=== PATIENT | female | born 1995 | race African-American/Black ===

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

== ENCOUNTER 2019-03-26 11:06 | Emergency (ER) | payer MEDICAID, MEDICARE, OTHER ==
[~2019-03-26] VITALS: Ht 152.4 cm; Wt 92.1 kg
--- NOTE | 2019-03-26 11:31 | NUR ---
ED Nurse Note:pt. c/o left foot pain and swelling after she fell yesterday
[2019-03-26] MEDS ORDERED: Acetaminophen 500mg (ES) tab PO ONE (11:45)
--- NOTE | 2019-03-26 12:39 | Diagnostic Imaging Report ---
Indication: left ankle pain Comparison: None Findings: 3 views of the left ankle obtained. Soft tissues are unremarkable. No acute fracture, malalignment, periostitis, or osteochondral defects are identified. Impression: No acute findings
[2019-03-26] MEDS ORDERED: TYLENOL EXTRA500 MG ORAL (12:52)
--- NOTE | 2019-03-26 12:53 | Diagnostic Imaging Report ---
Indication: Foot pain Comparison: None Findings: 3 views of the left foot were obtained. No acute fractures, malalignment, erosions or periostitis are identified. Soft tissues are unremarkable. Impression: No acute findings
--- NOTE | 2019-03-26 13:40 | NUR ---
ER DISCHARGE NOTE: Patient is cleared to be discharged per ERMD, pt is aox4, on room air, with stable vital signs. pt was given dc and prescription instructions, pt was able to verbalize understanding, pt is able to ambulating with cratchies. pt took all belongings.
[2019-03-26 14:22] VITALS: BP 119/71
--- NOTE | 2019-03-27 07:48 | Emergency Room Report ---
History of Present Illness General Chief Complaint: Lower Extremity Injury Source: Patient Present Illness HPI 23-year-old female presents ED for evaluation. Complaining of left ankle and foot pain. States that last night she tripped and fell, rolling her ankle. Presenting with left foot and ankle pain and swelling. Throbbing, 8 out of 10, nonradiating. Difficult bearing weight. Denies any other injuries. States that she is about 7 weeks based on LMP. Denies any abdominal pain or cramping or spotting. Is scheduled to start care. No other aggravating relieving factors. Denies any other associated symptoms Allergies: Coded Allergies: No Known Allergies (Unverified , 10/23/15) Patient History Past Medical History: none Past Surgical History: none Pertinent Family History: none Social History: Denies: smoking, alcohol use, drug use Last Menstrual Period: 7 weeks Now: Yes Immunizations: UTD Reviewed Nursing Documentation: PMH: Agreed; PSxH: Agreed Nursing Documentation-PMH Past Medical History: No Stated History Review of Systems All Other Systems: negative except mentioned in HPI Physical Exam Vital Signs Date Time Temp Pulse Resp B/P (MAP) Pulse Ox O2 Delivery O2 Flow Rate FiO2 03/26/19 11:12 98.6 92 18 119/71 (87) 99 Room Air Sp02 EP Interpretation: reviewed, normal General Appearance: no apparent distress, alert, GCS 15, non-toxic Head: normocephalic Eyes: bilateral eye normal inspection, bilateral eye PERRL ENT: normal ENT inspection Neck: normal inspection Respiratory: normal inspection Cardiovascular #1: normal inspection Gastrointestinal: normal bowel sounds, non tender, soft, non-distended, no guarding, no rebound Rectal: deferred Genitourinary: no CVA tenderness Musculoskeletal: back normal, gait/station normal, non-tender, decreased range of motion, tender - dorsum L foot. L ankle Neurologic: alert, oriented x3, responsive, motor strength/tone normal, sensory intact, speech normal Psychiatric: normal inspection Skin: no rash Lymphatic: normal inspection Procedures Splinting Splinting : Pre-Made Type: FRANK wrap - crutches Pre-Proc Neuro Vasc Exam: normal Post-Proc Neuro Vasc Exam: normal Patient Tolerated: Well Complications: None Medical Decision Making Diagnostic Impression: Primary Impression: Ankle sprain Qualified Codes: S93.402A - Sprain of unspecified ligament of left ankle, initial encounter ER Course Hospital Course 23-year-old F presents to ED complaining of L foot/ankle pain s/p trip and fall Differential diagnoses include: Fracture, dislocation, sprain, contusion Clinical course Patient placed on stretcher. After initial history and physical, I ordered pain medications and Xrays of L foot/ankle Precautions taken to shield the patient as she is . She agreed to x- rays Xrays prelim read shows no acute fracture/dislocation. placed in frank wrap, given crutches Discussed findings with patient. Safe for discharge close outpatient follow- up. I will provide Ortho referrals. States that she will start her care this week Diagnosis - ankle sprain Stable and discharged to home with prescription for tylenol. apply ice, keep elevated. weight bear as tolerated. Followup with PMD/ortho. Return to ED if symptoms recur or worsen Other X-Ray Diagnostic Results Other X-Ray Diagnostic Results #1: X-Ray ordered: L ankle # of Views/Limited Vs Complete: 3 View Indication: Pain EP Interpretation: Yes Interpretation: no dislocation, no soft tissue swelling, no fractures Impression: No acute disease Electronically Signed by: Electronically signed by Hair Diane MD Other X-Ray Diagnostic Results #2: X-Ray ordered: L foot # of Views/Limited Vs Complete: 3 View Indication: Pain EP Interpretation: Yes Interpretation: no dislocation, no soft tissue swelling, no fractures Impression: No acute disease Electronically Signed by: Electronically signed by Hair Diane MD Last Vital Signs Date Time Temp Pulse Resp B/P (MAP) Pulse Ox O2 Delivery O2 Flow Rate FiO2 03/26/19 14:22 98.6 18 119/71 99 Room Air 03/26/19 11:12 92 Status: improved Disposition: HOME, SELF-CARE Condition: Stable Scripts Acetaminophen* (TYLENOL EXTRA STRENGTH*) 500 Mg Tablet 500 MG ORAL Q8H PRN for Prn Headache/Temp > 101, #30 TAB 0 Refills Prov: Hair Diane MD 03/26/19 Referrals: NON PHYSICIAN (PCP) [facility] Open 24 hour /7 days a week by Appointment Only [address] [facility] [address] [facility] [address] Patient Instructions: Ankle Sprain Hair Diane MD Mar 27, 2019 07:48
== END 2019-03-26 13:40 | disposition home or self-care (01) ==
LOC: EMR 11:44
DX: O26.891 Other specified pregnancy related conditions, first trimester (principal); S93.402A Sprain of unspecified ligament of left ankle, initial encounter; W18.30XA Fall on same level, unspecified, initial encounter; Y92.9 Unspecified place or not applicable; Z3A.01 Less than 8 weeks gestation of pregnancy
CPT/HCPCS: 99284

== ENCOUNTER 2019-05-28 16:31 | Emergency (ER) | payer MEDICARE, OTHER ==
[~2019-05-28] VITALS: Ht 152.4 cm; Wt 90.7 kg
[~2019-05-28 16:31] MED LIST changes: +TYLENOL EXTRA500 MG ORAL
[2019-05-28 16:37] VITALS: BP 113/70
[2019-05-28] MEDS ORDERED: CALCIUM500 M3 PO (16:43)
[2019-05-28] MEDS ORDERED: IRON159 MG PO (16:43)
--- NOTE | 2019-05-28 16:46 | NUR ---
ED Nurse Note: Pt. AAOx4. ambulatory. pt. walked in to er. per pt. she is 15 weeks . pt. stated she has yeast infection with whitish colored discharged. Pt. stated her aunt told her to put yogurt on her vagina to help with yeast but now pt. is concerned because there's greenish colored discharge
[2019-05-28] MEDS ORDERED: Azithromycin 250mg tab ORAL ONE (17:15)
[2019-05-28 17:17] LABS: APPEARANCE,URINE CLOUDY; BILIRUBIN, URINE NEGATIVE (NEGATIVE); COLOR,URINE PALE YELLOW; GLUCOSE, URINE (UA) NEGATIVE (NEGATIVE); KETONES,URINE 3+ (NEGATIVE); LEUKOCYTE ESTERASE ,URINE 3+ (NEGATIVE); NITRITE,URINE NEGATIVE (NEGATIVE); PH,URINE 6.5 (4.5-8.0); PROTEIN,URINE NEGATIVE (NEGATIVE); UROBILINOGEN,URINE NORMAL MG/DL (0.0-1.0)
[2019-05-28 17:45] LABS: BASOPHILS % (AUTO) 1.3 % (0.0-2.0); EOSINOPHILS % (AUTO) 0.7 % (0.0-3.0); HEMATOCRIT 36.8 % (37.0-47.0); LYMPHOCYTES % (AUTO) 24.4 % (20.0-45.0); MEAN CORPUSCULAR VOLUME 76 FL (80-99); MONOCYTES % (AUTO) 6.6 % (1.0-10.0); NEUTROPHILS % (AUTO) 67.1 % (45.0-75.0); PLATELET COUNT 272 K/UL (150-450); RED BLOOD COUNT 4.84 M/UL (4.20-5.40); RED CELL DISTRIBUTION WIDTH 13.6 % (11.6-14.8); WHITE BLOOD COUNT 7.6 K/UL (4.8-10.8)
[2019-05-28 17:56] LABS: ANION GAP 9 mmol/L (5-15); BLOOD UREA NITROGEN 6 mg/dL (7-18); CALCIUM 8.7 MG/DL (8.5-10.1); CARBON DIOXIDE 26 MMOL/L (21-32); CHLORIDE 103 MMOL/L (98-107); CREATININE 0.6 MG/DL (0.55-1.30); POTASSIUM 3.1 MMOL/L (3.5-5.1); SODIUM 138 MMOL/L (136-145)
[2019-05-28 18:00] LABS: ALANINE AMINOTRANSFERASE 20 U/L (12-78); ALBUMIN 3.3 G/DL (3.4-5.0); ALBUMIN/GLOBULIN RATIO 0.8 (1.0-2.7); ALKALINE PHOSPHATASE 65 U/L (46-116); ASPARTATE AMINO TRANSFERASE 16 U/L (15-37); BILIRUBIN,TOTAL 0.2 MG/DL (0.2-1.0)
--- NOTE | 2019-05-28 18:30 | NUR ---
ED Nurse Note: PT. WENT DOWN TO US
--- NOTE | 2019-05-28 19:48 | Emergency Room Report ---
History of Present Illness General Chief Complaint: Vaginal Source: Patient Present Illness HPI 23-year-old female with no significant past medical history who is G1, P0 at 15 weeks here complaining of 2 days of white clumpy vaginal discharge and now turning green. Complains of pruritus. Denies dysuria urinary frequency. Reports that she has been sexually active with a new partner. Reports that she apply yogurt the vaginal area and started feeling worse. Denies diffuse abdominal pain, fever and chills, syncope, chest pain, shortness of breath, palpitation, vaginal spotting or bleeding. Complains of minimal left lower quadrant abdominal pain. Reports that her last DIGGING MACHINE OPERATOR visit was 3 weeks ago and within normal limits. Patient is compliant with taking vitamins. Sitting comfortably with stable vital signs. Allergies: Coded Allergies: No Known Allergies (Unverified , 10/23/15) Patient History Past Medical History: see triage record Past Surgical History: unable to obtain Pertinent Family History: none Now: Yes - 15 weeks Immunizations: UTD Reviewed Nursing Documentation: PMH: Agreed; PSxH: Agreed Nursing Documentation-PMH Past Medical History: No History, Except For Review of Systems All Other Systems: negative except mentioned in HPI Physical Exam Vital Signs Date Time Temp Pulse Resp B/P (MAP) Pulse Ox O2 Delivery O2 Flow Rate FiO2 05/28/19 16:37 98.2 94 19 113/70 (84) 99 Room Air Sp02 EP Interpretation: reviewed, normal General Appearance: no apparent distress, alert, GCS 15, non-toxic Head: normocephalic, atraumatic Eyes: bilateral eye normal inspection, bilateral eye PERRL ENT: hearing grossly normal, normal pharynx, no angioedema, normal voice Neck: full range of motion, supple/symm/no masses Respiratory: chest non-tender, lungs clear, normal breath sounds, no rhonchi, speaking full sentences Cardiovascular #1: regular rate, rhythm, no edema, no JVD, no murmur Gastrointestinal: normal bowel sounds, non tender, soft, no guarding, no hernia , no pulsatile mass, no rebound, distended - gravid Rectal: deferred Genitourinary: normal inspection, no CVA tenderness Musculoskeletal: back normal, decreased range of motion, normal range of motion , digits/nails normal, calf tenderness Neurologic: alert, motor strength/tone normal, oriented x3, sensory intact, responsive, speech normal Skin: no rash Lymphatic: no adenopathy Medical Decision Making PA Attestation Diagnosis and treatment plans were reviewed and discussed with my supervising physician Dr. Mckee Diagnostic Impression: Primary Impression: Vaginitis during Additional Impression: Abdominal pain during intrauterine ER Course 23-year-old female with no significant past medical history who is G1, P0 at 15 weeks here complaining of 2 days of white clumpy vaginal discharge and now turning green. Complains of pruritus. Denies dysuria urinary frequency. Reports that she has been sexually active with a new partner. Reports that she apply yogurt the vaginal area and started feeling worse. Denies diffuse abdominal pain, fever and chills, syncope, chest pain, shortness of breath, palpitation, vaginal spotting or bleeding. Complains of minimal left lower quadrant abdominal pain. Reports that her last DIGGING MACHINE OPERATOR visit was 3 weeks ago and within normal limits. Patient is compliant with taking vitamins. Sitting comfortably with stable vital signs. Ddx considered but are not limited to: vaginitis, yeast infection, BV, chlamydia , Gonorrhea, syphilis, HIV, herpes 1 or 2, ectopic , PID, threatened , abdominal pain during Vital signs: are WNL, pt. is afebrile H&PE are most consistent with : Vaginitis during , abdominal pain during ORDERS: UA, urince cx, wet mount, GC and chlamydia, OB ultrasound, beta-hCG, CBC , CMP, UA, type and screen, ED INTERVENTIONS: Rocephin, azithromycin, patient agreed to be prophylactically treated for chlamydia and gonorrhea. DISCHARGE: At this time pt. is stable for d/c to home. Will provide printed patient care instructions, and any necessary prescriptions. Care plan and follow up instructions have been discussed with the patient prior to discharge. Patient to follow-up with DIGGING MACHINE OPERATOR in 24 to 48 hours, if worsening symptoms return to the emergency room. CT/MRI/US Diagnostic Results CT/MRI/US Diagnostic Results : Imaging Test Ordered: OB US Impression WNL Last Vital Signs Date Time Temp Pulse Resp B/P (MAP) Pulse Ox O2 Delivery O2 Flow Rate FiO2 05/28/19 16:37 98.2 94 19 113/70 99 Room Air Disposition: HOME, SELF-CARE Condition: Stable Referrals: [facility],REFERRING (PCP) Patient Instructions: Abdominal Pain During , [id number], Vaginitis , [id number] Additional Instructions: Follow-up with your DIGGING MACHINE OPERATOR in 24 to 48 hours, avoid strenuous physical activity , you are already treated for possible chlamydia and gonorrhea. Efren Soto May 28, 2019 19:48
[2019-05-28 20:00] VITALS: BP 118/65
--- NOTE | 2019-05-28 20:01 | Diagnostic Imaging Report ---
EXAM: US First Trimester , Transabdominal and Transvaginal CLINICAL HISTORY: PAIN TECHNIQUE: Real-time transabdominal and transvaginal obstetrical ultrasound of the maternal pelvis and a first trimester with image documentation. Transvaginal imaging was used for better evaluation of the fetus and adnexa. COMPARISON: No relevant prior studies available. FINDINGS: Gestation: Single living intrauterine with an estimated gestational age of 15 weeks and 3 days. heart rate 150 bpm. Fetuses transverse in position. The cervix is closed measuring 3.4 cm. Free fluid: Trace free fluid within the cul-de-sac. IMPRESSION: Single living intrauterine with an estimated gestational age of 15 weeks and 3 days. No acute abnormality.
--- NOTE | 2019-05-28 20:09 | NUR ---
ER DISCHARGE NOTE: Patient is cleared to be discharged per ERMD, pt is aox4, on room air, with stable vital signs. pt was given dc instructions, pt was able to verbalize understanding, pt id band and iv site removed without complications. pt is able to ambulate with steady gait. pt took all belongings.
== END 2019-05-28 20:00 | disposition home or self-care (01) ==
LOC: EMR 16:47
DX: O23.592 Infection of other part of genital tract in pregnancy, second trimester (principal); O26.892 Other specified pregnancy related conditions, second trimester; R10.32 Left lower quadrant pain; Z3A.15 15 weeks gestation of pregnancy
CPT/HCPCS: 76805; 80053; 81003; 84702; 85025; 87210; 87491; 87590; 96372; 99284; J0696

== ENCOUNTER 2019-08-24 16:15 | Emergency (ER) | payer OTHER ==
[~2019-08-24] VITALS: Ht 152.4 cm; Wt 91.2 kg
[~2019-08-24 16:15] MED LIST changes: +CALCIUM500 M3 PO; +IRON159 MG PO
--- NOTE | 2019-08-24 16:30 | NUR ---
ED Nurse Note: Pt ambulated to ED d/t vaginal spotting x 2 days. Pt is 28 weeks , amniotic fluid still intact; one. Placed on bed and gown; family members at bedside.
--- NOTE | 2019-08-24 17:00 | NUR ---
ED Nurse Note: Pt able to urinate, specimen collected; sent to labs.
--- NOTE | 2019-08-24 17:20 | NUR ---
ED Nurse Note: Pt went on US accompanied by tech, on stable condition.
[2019-08-24 17:24] LABS: APPEARANCE,URINE SLIGHTLY CLOUDY; BILIRUBIN, URINE NEGATIVE (NEGATIVE); COLOR,URINE PALE YELLOW; GLUCOSE, URINE (UA) NEGATIVE (NEGATIVE); KETONES,URINE NEGATIVE (NEGATIVE); LEUKOCYTE ESTERASE ,URINE 3+ (NEGATIVE); NITRITE,URINE NEGATIVE (NEGATIVE); PH,URINE 7 (4.5-8.0); PROTEIN,URINE NEGATIVE (NEGATIVE); UROBILINOGEN,URINE NORMAL MG/DL (0.0-1.0)
--- NOTE | 2019-08-24 17:25 | Emergency Room Report ---
History of Present Illness General Chief Complaint: Complications Source: Patient Present Illness HPI Patient presents with complaints of suprapubic cramping and epigastric discomfort Patient also saw vaginal spotting earlier today she reports that she saw her OB doctor last week Was doing well after starting to work she had these symptoms ongoing for the past 2 days now and presents to the ER Denies any chest pain or shortness of breath denies any vomiting or diarrhea Denies any recent trauma Allergies: Coded Allergies: No Known Allergies (Unverified , 10/23/15) Patient History Past Medical History: see triage record Last Menstrual Period: jan Now: Yes - 7 months : 1 Reviewed Nursing Documentation: PMH: Agreed; PSxH: Agreed Nursing Documentation-PMH Past Medical History: No Stated History Review of Systems All Other Systems: negative except mentioned in HPI Physical Exam Vital Signs Date Time Temp Pulse Resp B/P (MAP) Pulse Ox O2 Delivery O2 Flow Rate FiO2 08/24/19 16:23 98.4 93 20 116/62 (80) 98 Room Air Sp02 EP Interpretation: reviewed, normal General Appearance: well appearing, no apparent distress Head: normocephalic, atraumatic Eyes: bilateral eye PERRL, bilateral eye EOMI ENT: hearing grossly normal, EOM grossly intact Neck: supple Respiratory: chest non-tender, lungs clear Cardiovascular #1: regular rate, rhythm Gastrointestinal: other - abdomen Genitourinary: no CVA tenderness Musculoskeletal: normal inspection, back normal Neurologic: alert Psychiatric: normal inspection Skin: no rash Lymphatic: no adenopathy Medical Decision Making Diagnostic Impression: Primary Impression: Abdominal pain ER Course Multiple differentials and consideration patient has a palpable abdomen is at approximately 28 weeks therefore further testing was not initiated Patient did have ultrasound obtained Ultrasound is within normal limits Patient does not have any active cramping at this time does not appear to be in labor urine sample showed some evidence of possible UTI she was provided with initial antibiotic here and requires close outpatient follow-up Labs Test 08/24/19 17:11 Urine Color Pale yellow Urine Appearance Slightly cloudy Urine pH 7 (4.5-8.0) Urine Specific Bland 1.010 (1.005-1.035) Urine Protein Negative (NEGATIVE) Urine Glucose (UA) Negative (NEGATIVE) Urine Ketones Negative (NEGATIVE) Urine Blood 1+ (NEGATIVE) Urine Nitrite Negative (NEGATIVE) Urine Bilirubin Negative (NEGATIVE) Urine Urobilinogen Normal MG/DL (0.0-1.0) Urine Leukocyte Esterase 3+ (NEGATIVE) Urine RBC 2-4 /HPF (0 - 2) Urine WBC 2-4 /HPF (0 - 2) Urine Squamous Epithelial Cells Moderate /LPF (NONE/OCC) Urine Amorphous Sediment Few /LPF (NONE) Urine Bacteria Few /HPF (NONE) CT/MRI/US Diagnostic Results CT/MRI/US Diagnostic Results : Impression Pelvic ultrasoundUS OB 1st TRIMESTER: Single live IUP with an estimated gestational age of 28 weeks and 1 day. Normal heart tones measured 159 bpm. Cervix long and closed measuring up to 4.2 cm. Posterior placenta without evidence of previa. No abnormalities identified. Last Vital Signs Date Time Temp Pulse Resp B/P (MAP) Pulse Ox O2 Delivery O2 Flow Rate FiO2 08/24/19 16:23 98.4 93 20 116/62 (80) 98 Room Air Status: improved Disposition: HOME, SELF-CARE Condition: Improved Scripts Nitrofurantoin Monohyd/M-Cryst* (MACROBID 100 MG*) 100 Mg Capsule 100 MG ORAL EVERY 12 HOURS for 5 Days, CAP Prov: Brittany Coffman DO 08/24/19 Additional Instructions: Patient is provided with the discharge instructions notified to follow up with primary doctor in the next 2-3 days otherwise return to the er with any worsening symptoms. Please note that this report is being documented using [employer] technology. This can lead to erroneous entry secondary to incorrect interpretation by the dictating instrument. Brittany Coffman DO Aug 24, 2019 17:25
--- NOTE | 2019-08-24 18:18 | Diagnostic Imaging Report ---
Indication: 23-year-old pelvic pain and vaginal bleeding Technique: Grayscale and duplex Doppler imaging of the pelvis performed utilizing a transabdominal scan and endovaginal scan. Comparison: None Findings: Single viable intrauterine demonstrated. Gestational age estimated at 28 weeks one day based on sonographic criteria. Biparietal diameter 70.3 mm, 28 weeks 2 days. Head circumference 256.4 mm, 27 weeks 6 days. Abdominal circumference 241.6 mm, 28 weeks 3 days. Femur length 52.5 mm, 28 weeks. The placenta is posterior location. There is no placenta previa. presentation is cephalic. The cervix is best seen on endovaginal scan and has a length of approximately 4.2 cm. The cervix is closed. MARIELA is normal estimated at 13.5 cm. heart tones are demonstrated indicating viability. anatomy is not assessed adequately on this examination. IMPRESSION: Single viable intrauterine 28 weeks one day gestational age. Close cervix. Normal MARIELA. Note: A negative ultrasound evaluation does not insure well-being or positive outcome for the . monitoring including a nonstress test may be needed and clinical evaluation by [facility]IDER is highly recommended. [facility] has communicated the preliminary results to the Emergency Department. Their findings are largely concordant with this report.
[2019-08-24] MEDS ORDERED: NITROFURANTOIN100 M2 ORAL (18:49)
[2019-08-24 19:13] VITALS: BP 118/64
--- NOTE | 2019-08-24 19:13 | NUR ---
ER DISCHARGE NOTE: Patient is cleared to be discharged per ERMD, pt is aox4, on room air, with stable vital signs. pt was given dc and prescription instructions, pt was able to verbalize understanding, pt id band removed. pt is able to ambulate with steady gait. pt took all belongings.
== END 2019-08-24 19:13 | disposition home or self-care (01) ==
LOC: EMR 17:04
DX: O26.893 Other specified pregnancy related conditions, third trimester (principal); R10.13 Epigastric pain; Z3A.28 28 weeks gestation of pregnancy
CPT/HCPCS: 76805; 76817; 76830; 76856; 81003; 99284

== ENCOUNTER 2020-04-23 08:11 | Emergency (ER) | payer OTHER ==
[~2020-04-23] VITALS: Ht 157.5 cm; Wt 81.6 kg
[~2020-04-23 08:11] MED LIST changes: +NITROFURANTOIN100 M2 ORAL
[2020-04-23 08:12] VITALS: BP 140/80
--- NOTE | 2020-04-23 08:21 | Emergency Room Report ---
History of Present Illness General Chief Complaint: Nausea, Vomiting, and Diarrhea Source: Patient Present Illness HPI Disclaimer: Please note that this report is being documented using [employer] technology. This can lead to erroneous entry secondary to incorrect interpretation by the dictating instrument. HPI: 24-year-old female presents for evaluation of abdominal pain and vomiting. Symptoms began early this morning approximately 3 AM. Noticed periumbilical right lower quadrant pain and persistent nonbloody nonbilious emesis. Reported some loose stools as well. Pain exacerbated by bending and twisting motion as well as ambulating. No relieving factors. Did not take any medication prior to arrival. Prior history of section and hernia repair. Denies vaginal bleeding, vaginal discharge, dysuria, hematuria, fever, chills, chest pain, shortness of breath or cough. PMH: Reviewed PSH: Hernia repair, section Allergies: Reviewed Social Hx: Reviewed Allergies: Coded Allergies: No Known Allergies (Unverified , 10/23/15) COVID-19 Screening Contact w/high risk pt: No Experienced COVID-19 symptoms?: No COVID-19 Testing performed APPAREL MANAGER: No Patient History Now: No Nursing Documentation-PMH Past Medical History: No Stated History Review of Systems All Other Systems: negative except mentioned in HPI Physical Exam Vital Signs Date Time Temp Pulse Resp B/P (MAP) Pulse Ox O2 Delivery O2 Flow Rate FiO2 04/23/20 08:08 97.3 97 20 140/80 (100) 100 Room Air General: Awake and alert, appears uncomfortable HEENT: NC/AT. EOMI. Cardiovascular: RRR. S1 and S2 normal. No murmur appreciated Resp: Normal work of breathing. No cough, wheezing or crackles appreciated Abdomen: Abdomen is soft, nondistended. Tender palpation of the right lower quadrant with positive rebound, positive percussion, positive Rovsing's. Skin: Intact. No abrasions, laceration or rash over the exposed skin MSK: Normal tone and bulk. Moving all extremities. No obvious deformity. Neuro: Awake and alert. Mentating appropriately. Medical Decision Making Diagnostic Impression: Primary Impression: Kidney stone ER Course 24-year-old female presents for evaluation abdominal pain and vomiting beginning this morning. Differential includes is not limited to gastritis, gastroenteritis, pancreatitis, cholecystitis, ovarian cyst, ovarian torsion, nephrolithiasis, ectopic , appendicitis, bowel obstruction to name a few. Labs returned within normal limits. Urinalysis shows red cells only. Lipase negative. CT scan shows 2 mm distal stone at the UVJ likely explaining her symptoms. Patient received IV fluids, pain medication and is feeling much better. No further emesis. No evidence of infection on urinalysis. Will discharge with analgesics, antiemetics, Flomax. Patient can follow-up with her PMD and obtain referral for urologist on outpatient basis. Discussed reasons to return to the ER. She understands and agrees with this treatment plan. Laboratory Tests Test 04/23/20 08:18 04/23/20 09:35 White Blood Count 6.3 K/UL (4.8-10.8) Red Blood Count 5.28 M/UL (4.20-5.40) Hemoglobin 13.4 G/DL (12.0-16.0) Hematocrit 42.0 % (37.0-47.0) Mean Corpuscular Volume 82 FL (80-99) Mean Corpuscular Hemoglobin 25.4 PG (27.0-31.0) L Mean Corpuscular Hemoglobin Concent 31.2 G/DL (32.0-36.0) L Red Cell Distribution Width 12.0 % (11.6-14.8) Platelet Count 275 K/UL (150-450) Mean Platelet Volume 6.9 FL (6.5-10.1) Neutrophils (%) (Auto) 46.9 % (45.0-75.0) Lymphocytes (%) (Auto) 43.9 % (20.0-45.0) Monocytes (%) (Auto) 6.8 % (1.0-10.0) Eosinophils (%) (Auto) 0.8 % (0.0-3.0) Basophils (%) (Auto) 1.7 % (0.0-2.0) Prothrombin Time 11.2 SEC (9.30-11.50) Prothrombin Time INR 1.0 (0.9-1.1) Activated Partial Thromboplast Time 29 SEC (23-33) Sodium Level 135 MMOL/L (136-145) L Potassium Level 3.5 MMOL/L (3.5-5.1) Chloride Level 103 MMOL/L (98-107) Carbon Dioxide Level 26 MMOL/L (21-32) Anion Gap 6 mmol/L (5-15) Blood Urea Nitrogen 15 mg/dL (7-18) Creatinine 0.9 MG/DL (0.55-1.30) Estimated Glomerular Filtration Rate > 60 mL/min (>60) Glucose Level 111 MG/DL (74-106) H Calcium Level 8.8 MG/DL (8.5-10.1) Total Bilirubin 0.3 MG/DL (0.2-1.0) Aspartate Amino Transferase (AST) 15 U/L (15-37) Alanine Aminotransferase (ALT) 20 U/L (12-78) Alkaline Phosphatase 79 U/L (46-116) Total Protein 8.0 G/DL (6.4-8.2) Albumin 3.8 G/DL (3.4-5.0) Globulin 4.2 g/dL Albumin/Globulin Ratio 0.9 (1.0-2.7) L Lipase 100 U/L (73-393) Urine Color Pale yellow Urine Appearance Clear Urine pH 7 (4.5-8.0) Urine Specific [place] 1.010 (1.005-1.035) Urine Protein Negative (NEGATIVE) Urine Glucose (UA) Negative (NEGATIVE) Urine Ketones Negative (NEGATIVE) Urine Blood 5+ (NEGATIVE) H Urine Nitrite Negative (NEGATIVE) Urine Bilirubin Negative (NEGATIVE) Urine Urobilinogen Normal MG/DL (0.0-1.0) Urine Leukocyte Esterase Negative (NEGATIVE) Urine RBC 10-15 /HPF (0 - 2) H Urine WBC 0-2 /HPF (0 - 2) Urine Squamous Epithelial Cells Few /LPF (NONE/OCC) Urine Bacteria Occasional /HPF (NONE) Urine HCG, Qualitative Negative (NEGATIVE) CT/MRI/US Diagnostic Results CT/MRI/US Diagnostic Results : Impression IMPRESSION: 1. 2 mm calcification near the right UVJ may represent a distal ureteral stone. Mild right hydroureteronephrosis. 2. Mild hypoattenuation in the right kidney is concerning for early pyelonephritis. Prominence of the urothelium in the right renal collecting sys tem is suggestive of ureteritis. 3. Mild prominence of the bladder wall is concerning for cystitis. Please correlate with urinalysis. 4. Punctate nonobstructing left renal stone. No hydronephrosis or ureteral stone on the left. 5. Collapsing cyst or corpus luteum in the right ovary. Radiologist: Charito Irwin M.D. Electronically Signed: 04/23/20 11:09 Study ready at 11:03 and initial results transmitted at 11:09 Last Vital Signs Date Time Temp Pulse Resp B/P (MAP) Pulse Ox O2 Delivery O2 Flow Rate FiO2 04/23/20 08:08 97.3 97 20 140/80 (100) 100 Room Air Disposition: HOME, SELF-CARE Condition: Stable Scripts Ondansetron Odt* (ZOFRAN ODT*) 4 Mg Tab.rapdis 4 MG BC EVERY 6 HOURS PRN for Nausea & Vomiting, #20 TAB 0 Refills Prov: Wojciech Falcon MD 04/23/20 Tamsulosin HCl (Flomax) 0.4 Mg Cap.er.24h 0.4 MG ORAL DAILY for BPH for 5 Days, #5 CAP Prov: Wojciech Falcon MD 04/23/20 Ibuprofen* (MOTRIN*) 600 Mg Tablet 600 MG ORAL Q6H PRN for For Pain, #30 TAB 0 Refills Prov: Wojciech aFlcon MD 04/23/20 Wojciech Falcon MD Apr 23, 2020 08:21
[2020-04-23] MEDS ORDERED: Morphine Sulfate 4mg/ml Inj (IV USE ONLY) IVP ONE ×2 (08:30→09:45)
[2020-04-23] MEDS ORDERED: Omnipaque-300 100ml vial INJ PRN (08:30)
[2020-04-23 09:02] LABS: BASOPHILS % (AUTO) 1.7 % (0.0-2.0); EOSINOPHILS % (AUTO) 0.8 % (0.0-3.0); HEMOGLOBIN 13.4 G/DL (12.0-16.0); LYMPHOCYTES % (AUTO) 43.9 % (20.0-45.0); MEAN CORPUSCULAR VOLUME 82 FL (80-99); MONOCYTES % (AUTO) 6.8 % (1.0-10.0); NEUTROPHILS % (AUTO) 46.9 % (45.0-75.0); PLATELET COUNT 275 K/UL (150-450); RED BLOOD COUNT 5.28 M/UL (4.20-5.40); WHITE BLOOD COUNT 6.3 K/UL (4.8-10.8)
[2020-04-23 09:13] LABS: ANION GAP 6 mmol/L (5-15); BLOOD UREA NITROGEN 15 mg/dL (7-18); CALCIUM 8.8 MG/DL (8.5-10.1); CARBON DIOXIDE 26 MMOL/L (21-32); CHLORIDE 103 MMOL/L (98-107); CREATININE 0.9 MG/DL (0.55-1.30); POTASSIUM 3.5 MMOL/L (3.5-5.1); SODIUM 135 MMOL/L (136-145)
[2020-04-23 09:17] LABS: ALANINE AMINOTRANSFERASE 20 U/L (12-78); ALBUMIN 3.8 G/DL (3.4-5.0); ALBUMIN/GLOBULIN RATIO 0.9 (1.0-2.7); ALKALINE PHOSPHATASE 79 U/L (46-116); ASPARTATE AMINO TRANSFERASE 15 U/L (15-37); BILIRUBIN,TOTAL 0.3 MG/DL (0.2-1.0)
[2020-04-23 10:24] VITALS: BP 131/72
[2020-04-23 10:24] LABS: APPEARANCE,URINE CLEAR; BILIRUBIN, URINE NEGATIVE (NEGATIVE); COLOR,URINE PALE YELLOW; GLUCOSE, URINE (UA) NEGATIVE (NEGATIVE); KETONES,URINE NEGATIVE (NEGATIVE); LEUKOCYTE ESTERASE ,URINE NEGATIVE (NEGATIVE); NITRITE,URINE NEGATIVE (NEGATIVE); PH,URINE 7 (4.5-8.0); PROTEIN,URINE NEGATIVE (NEGATIVE); UROBILINOGEN,URINE NORMAL MG/DL (0.0-1.0)
--- NOTE | 2020-04-23 11:10 | Diagnostic Imaging Report ---
EXAM: CT Abdomen and Pelvis With Intravenous Contrast CLINICAL HISTORY: ABD PAIN TECHNIQUE: Axial computed tomography images of the abdomen and pelvis with intravenous contrast. CTDI is 15.4 mGy and DLP is 824 mGy-cm. One or more of the following dose reduction techniques were used: automated exposure control, adjustment of the mA and/or kV according to patient size, use of iterative reconstruction technique. COMPARISON: None FINDINGS: Lung bases: Unremarkable. No mass. No consolidation. ABDOMEN: Liver: Small cyst at the liver dome. Mild focal fat along the falciform ligament. Gallbladder and bile ducts: Unremarkable. No calcified stones. No ductal dilation. Pancreas: Unremarkable. No mass. No ductal dilation. Spleen: Unremarkable. No splenomegaly. Adrenals: Unremarkable. No mass. Kidneys and ureters: 2 mm calcification near the right UVJ may represent a distal ureteral stone. Mild right hydroureteronephrosis. Mild hypoattenuation in the right kidney is concerning for early pyelonephritis. Prominence of the urothelium in the right renal collecting system is suggestive of ureteritis. Punctate nonobstructing left renal stone. No hydronephrosis or ureteral stone on the left. Stomach and bowel: Evaluation of the stomach is limited by underdistention. No mucosal thickening. PELVIS: Appendix: Normal appendix. Bladder: Mild prominence of the bladder wall is concerning for cystitis. Please correlate with urinalysis. Reproductive: Collapsing cyst or corpus luteum in the right ovary. ABDOMEN and PELVIS: Intraperitoneal space: Small amount of fluid in the pelvis which is likely physiologic. No free air. Bones/joints: No acute fracture. No dislocation. Soft tissues: Unremarkable. Vasculature: Unremarkable. No abdominal aortic aneurysm. Lymph nodes: Unremarkable. No enlarged lymph nodes. IMPRESSION: 1. 2 mm calcification near the right UVJ may represent a distal ureteral stone. Mild right hydroureteronephrosis. 2. Mild hypoattenuation in the right kidney is concerning for early pyelonephritis. Prominence of the urothelium in the right renal collecting system is suggestive of ureteritis. 3. Mild prominence of the bladder wall is concerning for cystitis. Please correlate with urinalysis. 4. Punctate nonobstructing left renal stone. No hydronephrosis or ureteral stone on the left. 5. Collapsing cyst or corpus luteum in the right ovary.
[2020-04-23] MEDS ORDERED: FLOMAX0.4 MG ORAL (11:17)
[2020-04-23] MEDS ORDERED: ONDANSETRON ODT4 MG BC (11:17)
[2020-04-23] MEDS ORDERED: IBUPROFEN600 M1 ORAL (11:17)
[2020-04-23 11:26] VITALS: BP 125/78
[2020-04-23] MEDS ORDERED: Ketorolac 30mg Inj IV ONE (11:30)
== END 2020-04-23 11:26 | disposition home or self-care (01) ==
LOC: EDBD 08:11 → EMR 08:21
DX: N20.0 Calculus of kidney (principal); N13.30 Unspecified hydronephrosis
CPT/HCPCS: 36415; 74177; 80053; 81003; 81025; 83690; 85025; 85610; 85730; 86850; 86900; 86901; 96361; 96374; 96375; 96376; J1885; J2270; J2405; J7030; Q9965; S0028; Z7502; 99284

== ENCOUNTER 2020-04-25 14:41 | Emergency (ER) | payer OTHER ==
[~2020-04-25] VITALS: Ht 152.4 cm; Wt 95.3 kg
[~2020-04-25 14:41] MED LIST changes: +FLOMAX0.4 MG ORAL; +IBUPROFEN600 M1 ORAL; +ONDANSETRON ODT4 MG BC
[2020-04-25 14:55] VITALS: BP 126/71
[2020-04-25] MEDS ORDERED: Morphine Sulfate 4mg/ml Inj (IV USE ONLY) IVP ONE (15:00)
[2020-04-25] MEDS ORDERED: Ketorolac 30mg Inj IV ONE (15:00)
--- NOTE | 2020-04-25 15:10 | NUR ---
ED Nurse Note: Pt BIBA for c/o abdominal pain 10/10 mid abdomen for 2 days. Pt was in ER 2 days ago for kidney stone. Pt is alert and orientedx4, ambulatory. Pt set up on monitor. She has been seen by MATT. Pt is crying from pain.
[2020-04-25 15:30] LABS: BASOPHILS % (AUTO) 1.4 % (0.0-2.0); EOSINOPHILS % (AUTO) 0.2 % (0.0-3.0); HEMATOCRIT 40.7 % (37.0-47.0); HEMOGLOBIN 13.2 G/DL (12.0-16.0); LYMPHOCYTES % (AUTO) 13.4 % (20.0-45.0); MEAN CORPUSCULAR VOLUME 81 FL (80-99); MONOCYTES % (AUTO) 7.4 % (1.0-10.0); NEUTROPHILS % (AUTO) 77.7 % (45.0-75.0); PLATELET COUNT 272 K/UL (150-450); RED BLOOD COUNT 5.04 M/UL (4.20-5.40); RED CELL DISTRIBUTION WIDTH 12.2 % (11.6-14.8); WHITE BLOOD COUNT 10.9 K/UL (4.8-10.8)
[2020-04-25 15:34] LABS: ANION GAP 7 mmol/L (5-15); BLOOD UREA NITROGEN 9 mg/dL (7-18); CALCIUM 8.8 MG/DL (8.5-10.1); CARBON DIOXIDE 26 MMOL/L (21-32); CHLORIDE 104 MMOL/L (98-107); CREATININE 0.9 MG/DL (0.55-1.30); POTASSIUM 3.7 MMOL/L (3.5-5.1); SODIUM 137 MMOL/L (136-145)
[2020-04-25 15:38] LABS: ALANINE AMINOTRANSFERASE 16 U/L (12-78); ALBUMIN 3.7 G/DL (3.4-5.0); ALBUMIN/GLOBULIN RATIO 1.1 (1.0-2.7); ALKALINE PHOSPHATASE 82 U/L (46-116); ASPARTATE AMINO TRANSFERASE 20 U/L (15-37); BILIRUBIN,TOTAL 0.5 MG/DL (0.2-1.0)
--- NOTE | 2020-04-25 16:00 | NUR ---
ED Nurse Note: Urine sent.
[2020-04-25 16:27] LABS: APPEARANCE,URINE SLIGHTLY CLOUDY; BILIRUBIN, URINE NEGATIVE (NEGATIVE); COLOR,URINE PALE YELLOW; GLUCOSE, URINE (UA) NEGATIVE (NEGATIVE); KETONES,URINE NEGATIVE (NEGATIVE); LEUKOCYTE ESTERASE ,URINE 3+ (NEGATIVE); NITRITE,URINE NEGATIVE (NEGATIVE); PH,URINE 7 (4.5-8.0); PROTEIN,URINE NEGATIVE (NEGATIVE); UROBILINOGEN,URINE NORMAL MG/DL (0.0-1.0)
--- NOTE | 2020-04-25 16:46 | Diagnostic Imaging Report ---
Indication: Abdominal pain Technique: Lynch-scale and duplex images of the upper abdomen were obtained Comparison: No comparison sonograms. Reference made to CT abdomen pelvis dated 04/23/2020 Findings: Gallbladder demonstrates gallstones. No wall thickening, nor pericholecystic fluid. Sonographic Bustamante's sign is negative. Common bile duct measures 2 mm in diameter. No intrahepatic biliary ductal dilatation. Liver demonstrates normal echogenicity, no focal abnormality. Portal vein and hepatic veins are patent. Pancreas is unremarkable. Spleen is unremarkable. Left kidney measures 10.7 cm in length. Right kidney measures 11.8 cm length. Both kidneys demonstrate normal echogenicity. Right kidney demonstrates mild hydronephrosis No focal abnormality . Non-aneurysmal abdominal aorta . Impression: Cholelithiasis. Negative for dilated bile ducts Mild right hydronephrosis, also described on recent CT scan
[2020-04-25 17:04] VITALS: BP 125/73
[2020-04-25] MEDS ORDERED: cefTRIAXone 1 GM in NS 55 ML IVPB ONE (17:15)
[2020-04-25] MEDS ORDERED: Morphine Sulfate 2mg/ml Inj(IV/IM USE ONLY) IVP ONE (18:45)
[2020-04-25] MEDS ORDERED: Morphine Sulfate 2mg/ml Inj(IV/IM USE ONLY) ONE (18:45)
--- NOTE | 2020-04-25 18:47 | Emergency Room Report ---
History of Present Illness General Chief Complaint: Abdominal Pain Source: Patient Present Illness HPI Patient is a 24-year-old female who presents for increased right-sided abdominal pain. Patient reports having no recent fever. No recent diagnosis of kidney stones. Had multiple episodes of vomiting. Had been seen at [facility] and had recurrence of pain after medications resolved. Patient had not been having any diarrhea. She had recently been prescribed Ripley but had been able to keep that down. Had recent CT imaging which showed mild hydronephrosis. Allergies: Coded Allergies: No Known Allergies (Unverified , 10/23/15) COVID-19 Screening Contact w/high risk pt: No Experienced COVID-19 symptoms?: No COVID-19 Testing performed MOTION PICTURE SET GRIP: No Patient History Past Medical History: see triage record Last Menstrual Period: na Reviewed Nursing Documentation: PMH: Agreed; PSxH: Agreed Nursing Documentation-PMH Past Medical History: No History, Except For Review of Systems All Other Systems: negative except mentioned in HPI Physical Exam Vital Signs Date Time Temp Pulse Resp B/P (MAP) Pulse Ox O2 Delivery O2 Flow Rate FiO2 04/25/20 14:43 98.2 100 18 123/59 (80) 98 Room Air 04/25/20 14:55 99 Sp02 EP Interpretation: reviewed, normal General Appearance: normal inspection, well appearing, no apparent distress, alert, GCS 15, obese Head: atraumatic ENT: normal ENT inspection, hearing grossly normal, normal voice Neck: normal inspection, full range of motion, supple, no bony tend Respiratory: normal inspection, lungs clear, normal breath sounds, no respiratory distress, no retraction, no wheezing Cardiovascular #1: regular rate, rhythm, no edema Gastrointestinal: normal inspection, normal bowel sounds, non tender, soft, no guarding, no hernia Genitourinary: no CVA tenderness Musculoskeletal: normal inspection, back normal, normal range of motion Neurologic: alert, oriented x3, sensory intact, responsive, speech normal, normal inspection Psychiatric: normal inspection, judgement/insight normal, mood/affect normal Medical Decision Making Diagnostic Impression: Primary Impression: Kidney stone ER Course Patient presented for abdominal pain. Differential diagnosis included was not limited to urinary tract infection, stone, hydronephrosis among others. Because of complexity of patient's case laboratory tests and imaging studies were ordered. Patient's laboratory testing showed normal creatinine as well as a normal white blood count. A urinalysis did show some evidence of urinary infection. Abdominal ultrasound read by radiology showed gallstones in addition to mild right-sided hydronephrosis seen on CT as well. Patient was noted to have improvement in pain while in the emergency department. She did notice that the pain had migrated to more medially. Patient stone is reportedly [address] and should pass spontaneously. Patient was given IV antibiotics. Patient be discharged home. She was advised a low-fat diet due to gallstones. The patient is advised to follow up with primary care doctor in 1-2 days. Patient is advised to return if any worsening condition or if any changes in status that are concerning. This report is dictated with [employer] group director software which may occasionally lead to discrepancies related to use of this software. Labs Test 04/25/20 14:51 04/25/20 16:09 White Blood Count 10.9 K/UL (4.8-10.8) Red Blood Count 5.04 M/UL (4.20-5.40) Hemoglobin 13.2 G/DL (12.0-16.0) Hematocrit 40.7 % (37.0-47.0) Mean Corpuscular Volume 81 FL (80-99) Mean Corpuscular Hemoglobin 26.1 PG (27.0-31.0) Mean Corpuscular Hemoglobin Concent 32.3 G/DL (32.0-36.0) Red Cell Distribution Width 12.2 % (11.6-14.8) Platelet Count 272 K/UL (150-450) Mean Platelet Volume 7.6 FL (6.5-10.1) Neutrophils (%) (Auto) 77.7 % (45.0-75.0) Lymphocytes (%) (Auto) 13.4 % (20.0-45.0) Monocytes (%) (Auto) 7.4 % (1.0-10.0) Eosinophils (%) (Auto) 0.2 % (0.0-3.0) Basophils (%) (Auto) 1.4 % (0.0-2.0) Sodium Level 137 MMOL/L (136-145) Potassium Level 3.7 MMOL/L (3.5-5.1) Chloride Level 104 MMOL/L (98-107) Carbon Dioxide Level 26 MMOL/L (21-32) Anion Gap 7 mmol/L (5-15) Blood Urea Nitrogen 9 mg/dL (7-18) Creatinine 0.9 MG/DL (0.55-1.30) Estimat Glomerular Filtration Rate > 60 mL/min (>60) Glucose Level 90 MG/DL (74-106) Calcium Level 8.8 MG/DL (8.5-10.1) Total Bilirubin 0.5 MG/DL (0.2-1.0) Aspartate Amino Transf (AST/SGOT) 20 U/L (15-37) Alanine Aminotransferase (ALT/SGPT) 16 U/L (12-78) Alkaline Phosphatase 82 U/L (46-116) Total Protein 7.1 G/DL (6.4-8.2) Albumin 3.7 G/DL (3.4-5.0) Globulin 3.4 g/dL Albumin/Globulin Ratio 1.1 (1.0-2.7) Lipase 59 U/L (73-393) Urine Color Pale yellow Urine Appearance Slightly cloudy Urine pH 7 (4.5-8.0) Urine Specific [place] 1.005 (1.005-1.035) Urine Protein Negative (NEGATIVE) Urine Glucose (UA) Negative (NEGATIVE) Urine Ketones Negative (NEGATIVE) Urine Blood 2+ (NEGATIVE) Urine Nitrite Negative (NEGATIVE) Urine Bilirubin Negative (NEGATIVE) Urine Urobilinogen Normal MG/DL (0.0-1.0) Urine Leukocyte Esterase 3+ (NEGATIVE) Urine RBC 2-4 /HPF (0 - 2) Urine WBC 15-20 /HPF (0 - 2) Urine Squamous Epithelial Cells Few /LPF (NONE/OCC) Urine Bacteria Occasional /HPF (NONE) Urine HCG, Qualitative Negative (NEGATIVE) Last Vital Signs Date Time Temp Pulse Resp B/P (MAP) Pulse Ox O2 Delivery O2 Flow Rate FiO2 04/25/20 17:04 98.3 87 16 125/73 97 Room Air 04/25/20 14:55 99 Status: improved Disposition: HOME, SELF-CARE Condition: Stable Referrals: BETH MCKEON,REFERRING (PCP) Patient Instructions: Abdominal Pain, Adult Kadien Johns MD Apr 25, 2020 18:47
[2020-04-25 19:02] VITALS: BP 127/72
--- NOTE | 2020-04-25 19:10 | NUR ---
ED Nurse Note: received report from REHAN Carrillo patient is in no distress at this time. awaiting ultrasound results. will continue to monitor
[2020-04-25 20:15] VITALS: BP 127/72
== END 2020-04-25 20:15 | disposition home or self-care (01) ==
LOC: EDBD 14:41 → EMR 15:00
DX: N13.30 Unspecified hydronephrosis (principal); E66.9 Obesity, unspecified; K80.20 Calculus of gallbladder without cholecystitis without obstruction; Z68.41 Body mass index [BMI] 40.0-44.9, adult
CPT/HCPCS: 36415; 76700; 80053; 81003; 81025; 83690; 85025; 87086; 96361; 96365; 96375; 96376; J0696; J1885; J2270; J2405; J7030; Z7502; 99284